=== PATIENT | female | born 1960 | race Caucasian/White ===

== ENCOUNTER → 2016-04-25 | Outpatient (CLI) | payer OTHER | LOC: BRMIMAGING 13:42 | DX: Z12.31 Encounter for screening mammogram for malignant neoplasm of breast (principal) | CPT/HCPCS: G0202 ==

== ENCOUNTER → 2016-07-03 | Outpatient (CLI) | payer OTHER | LOC: BRMIMAGING 08:39 | PROVIDERS: ATTEND Internal Medicine Endocrinology, Diabetes & Metabolism | DX: Z13.820 Encounter for screening for osteoporosis (principal); Z90.710 Acquired absence of both cervix and uterus ==

== ENCOUNTER → 2016-07-09 | Outpatient (CLI) | payer OTHER | LOC: BRMIMAGING 08:58 | PROVIDERS: ATTEND Family Medicine | DX: M25.572 Pain in left ankle and joints of left foot (principal) | CPT/HCPCS: 73610-PO ==

== ENCOUNTER → 2017-01-27 | Outpatient (CLI) | payer OTHER | LOC: CIMAGING 10:39 | PROVIDERS: ATTEND Family Medicine | DX: M25.774 Osteophyte, right foot (principal) | CPT/HCPCS: 73630-PO ==

== ENCOUNTER → 2017-02-24 | Outpatient (CLI) | payer OTHER | LOC: BRMIMAGING 14:36 | PROVIDERS: ATTEND Family Medicine | DX: Z85.850 Personal history of malignant neoplasm of thyroid (principal); Z90.09 Acquired absence of other part of head and neck ==

== ENCOUNTER → 2017-04-27 | Outpatient (CLI) | payer OTHER | LOC: BRMIMAGING 08:12 | PROVIDERS: ATTEND Family Medicine | DX: Z12.31 Encounter for screening mammogram for malignant neoplasm of breast (principal) ==

== ENCOUNTER → 2017-09-30 | Outpatient (CLI) | payer OTHER | LOC: BRMIMAGING 15:57 | PROVIDERS: ATTEND Internal Medicine | DX: M79.641 Pain in right hand (principal); M79.642 Pain in left hand; M25.561 Pain in right knee; M25.562 Pain in left knee; M79.671 Pain in right foot; M79.672 Pain in left foot | CPT/HCPCS: 73130-PO; 73562-PO; 73630-PO ==

== ENCOUNTER → 2018-04-28 | Outpatient (CLI) | payer OTHER | LOC: BRMIMAGING 08:40 | PROVIDERS: ATTEND Family Medicine | DX: Z12.31 Encounter for screening mammogram for malignant neoplasm of breast (principal) ==

== ENCOUNTER → 2018-07-02 | Outpatient (CLI) | payer OTHER | LOC: CIMAGING 13:12 | PROVIDERS: ATTEND Family Medicine | DX: R05 Cough (principal); E03.9 Hypothyroidism, unspecified; Z85.850 Personal history of malignant neoplasm of thyroid; Z51.81 Encounter for therapeutic drug level monitoring | CPT/HCPCS: 71046-PO ==

== ENCOUNTER → 2018-07-07 | Outpatient (CLI) | payer OTHER | LOC: BRMIMAGING 08:16 ==

== ENCOUNTER → 2018-07-09 | Outpatient (CLI) | payer OTHER | LOC: CIMAGING 12:32 ==